=== PATIENT | female | born 1965 | race Caucasian/White ===

== ENCOUNTER 2018-03-25 06:59 | Day surgery (SDC) | payer OTHER ==
[~2018-03-25] VITALS: Ht 165.1 cm; Wt 49.9 kg
[2018-03-25 07:25] VITALS: BP 116/63
[2018-03-25 15:24] VITALS: BP 105/56
== END 2018-03-25 15:05 | disposition home or self-care (01) ==
LOC: DS 06:59 → OR 07:30 → DS 15:05
PROVIDERS: Neuromusculoskeletal Medicine, Sports Medicine
PROC: 0SBD4ZZ Excision of Left Knee Joint, Percutaneous Endoscopic Approach (ICD-10-PCS; principal; 2018-03-25 07:30)
DX: M23.222 Derangement of posterior horn of medial meniscus due to old tear or injury, left knee (principal); S83.232A Complex tear of medial meniscus, current injury, left knee, initial encounter; Z98.51 Tubal ligation status; X58.XXXA Exposure to other specified factors, initial encounter; Y92.9 Unspecified place or not applicable
CPT/HCPCS: J0690; J2175; J2250; J2405; J2704; J3010; J3490; J7030; J7120